=== PATIENT | male | born 1995 | race African-American/Black ===

== ENCOUNTER 2016-08-11 12:26 | Emergency (ER) | payer SELFPAY ==
[~2016-08-11 12:26] MED LIST: NO MEDICATIONS; PYRIDIUM PO
[2016-08-11 14:00] LABS: URINE SOURCE CLEAN CATCH
[2016-08-11 14:06] LABS: URINE APPEARANCE CLEAR; URINE BILIRUBIN NEG (NEG); URINE BLOOD TRACE (NEG); URINE COLOR YELLOW; URINE GLUCOSE NEG (NEG); URINE KETONE NEG (NEG); URINE LEUKOCYTE ESTERASE 3+ (NEG); URINE NITRATE NEG (NEG); URINE PROTEIN NEG (NEG); URINE SPECIFIC GRAVITY 1.015 (1.003-1.035)
[2016-08-11 14:09] LABS: CULTURE INDICATED? YES; URINE BACTERIA AUWI NEG (NEGATIVE); URINE SQUAMOUS EPITHELIAL CELL NONE SEEN /[HPF]; UWBCS1 AUWI 200-300 (0-5)
[2016-08-15 15:56] LABS: CHLAMYDIA TRACH Detected (Not Detected); N GONOR Detected (Not Detected)
== END 2016-08-11 14:30 | disposition home or self-care (01) ==
LOC: CED 12:26
PROVIDERS: Nurse Practitioner
DX: N34.1 Nonspecific urethritis (principal)
CPT/HCPCS: 81003; 87086; 87491; 87591; 96372; 99283; J0696